=== PATIENT | male | born 1950 | race Caucasian/White ===

== ENCOUNTER 2024-02-25 08:13 | Oncology outpatient (recurring) (ONCR) | payer MEDICARE, SELFPAY ==
[2024-02-25 09:02] LABS: Basophils # 0.1 10^3/uL (0.0-0.1); Basophils % 1.3 %; Eosinophils # 0.1 10^3/uL (0.0-0.8); Hematocrit 38.5 % (37-53); Lymphocytes # 1.6 10^3/uL (0.8-4.8); Lymphocytes % 27.1 %; Mean Corpuscular HGB Conc 29.9 g/dL (30-55); Mean Corpuscular Hemoglobin 24.1 pg (27-33); Mean Corpuscular Volume 80.5 fl (82-101); Mean Platelet Volume 9.7 fL (7.4-10.4); Monocytes # 0.5 10^3/uL (0.2-0.9); Monocytes % 8.4 %; Neutrophils # 3.62 10^3/uL (1.8-7.7); Neutrophils % 60.9 %; Nucleated Red Blood Cells % 0 %; Platelet Count 307 10^3/cmm (157-399); Red Blood Count 4.78 10^6/uL (3.85-5.65); Red Cell Distribution Width 18.2 % (12.1-15.1); White Blood Count 5.95 10^3/uL (3.29-11.43)
[2024-02-25 09:25] LABS: Alanine Aminotransferase 9 U/L (0-41); Albumin Level 4.3 g/dL (3.5-5.2); Alkaline Phosphatase 124 U/L (40-130); Anion Gap 13.5 (5-19); Aspartate Amino Transferase 22 U/L (0-40); Blood Urea Nitrogen 15 mg/dL (8-23); Calcium 10.1 mg/dL (8.5-10.5); Carbon Dioxide 26 mmol/L (22-29); Chloride 108 mmol/L (98-107); Cholesterol 200 mg/dL (0-200); Globulin 2.5 g/dL (1.3-4.6); Glucose 101 mg/dL (65-115); HDL Cholesterol 73 mg/dL (60-100); LDL Cholesterol Direct 125 mg/dL (0-100); Osmolality Calculated 297 mOsm/kg (285-295); Potassium 4.5 mmol/L (3.5-5.1); Prostate Specific Antigen Scr 1.59 ng/mL (0-4); Sodium 143 mmol/L (136-145); Total Bilirubin 0.5 mg/dL (0.15-1.2); Total Protein 6.8 g/dL (6.6-8.7)
[2024-02-29 15:10] LABS: Vit D 1,25 (Oh)2, Total 49 pg/mL (18-72); Vit D2 1,25 (Oh)2 <8 pg/mL; Vit D3 1,25 (Oh)2 49 pg/mL
--- NOTE | 2024-03-04 10:30 | CT_ITS ---
WS: [id number] CT LUMBAR SPINE TECHNIQUE: Noncontrast CT of the lumbar spine with coronal and sagittal reformatted images. CLINICAL INFORMATION: radicular pain COMPARISON: None. DLP: 583.[address] scans at [facility] [place] use at least one of these dose optimization techniques: automated e xposure control; mA and/or kV adjustment per patient size (includes targeted exams where dose is matc hed to clinical indication); or iterative reconstruction. FINDINGS: 4 nonrib-bearing lumbar vertebral bodies. First sacral segment is considered L5 for the purposes of t his dictation. Recommend plain film correlation prior to surgical management. Prior interbody fusion L3-4. Partial ankylosis SI joints. Lung bases are well aerated. Adrenal glands are normal. T12-L1: Normal L1-L2: No significant disc bulging. Moderate facet arthropathy. Spinal canal and foramen are patent. L2-L3: Disc osteophyte complex with tiny central protrusion. Mild central canal stenosis. Slight narr owing subarticular recess bilaterally. Mild LEFT greater than RIGHT foraminal narrowing. Moderate fac et arthropathy. L3-L4: Prior interbody bony fusion. RIGHT hemilaminectomy. Mild central canal stenosis. Mild to moder ate RIGHT and mild LEFT foraminal narrowing. Moderate facet arthropathy. L4-L5: Mild disc bulge with osteophytic ridging. Slight effacement of the ventral thecal sac. Slight contact of the LEFT S1 nerve root. Mild bilateral foraminal narrowing. Moderate to advanced facet art hropathy. L5-S1: Normal. CT/CT lumbar spine wo con* [id number] IMPRESSION: 1. 4 nonrib-bearing lumbar vertebral bodies considered L1-L4 for the purposes of this dictation. First sacral segment is considered L5. 2. Mild central canal stenosis L2-L3 and L3-L4. Prior interbody fusion L3-4 wi th RIGHT hemilaminectomy. 3. Tiny central protrusion L4-5 with slight contact of the traversing LEFT gre ater than RIGHT S1 nerve roots. 4. Moderate facet arthropathy L2-L3 and L3-L4. Advanced facet arthropathy L4-5 . 5. Mild to moderate RIGHT L3-4 foraminal narrowing. 6. Otherwise mild foraminal narrowing described above.
--- NOTE | 2024-03-04 11:00 | CT_ITS ---
WS: [id number] CT ABDOMEN PELVIS TECHNIQUE: Noncontrast CT of the abdomen and pelvis with coronal and sagittal reformatted images. CLINICAL INFORMATION: radicular pain, ischial pain COMPARISON: None. DLP: 583.[address] scans at [facility] use at least one of these dose optimization techniques: automated e xposure control; mA and/or kV adjustment per patient size (includes targeted exams where dose is matc hed to clinical indication); or iterative reconstruction. FINDINGS: Lung bases are well aerated. Normal noncontrast liver. Cholelithiasis. No gallbladder wall thickening or pericholecystic fluid. Moderate to large esophageal hiatal hernia. Soft tissue thickening of the GE junction. This could be further evaluated with endoscopy. Normal noncontrast spleen. Adrenal glands are normal. No hydronephrosis. No obstructing renal or uret eral calculi. Enlarged prostate measuring 4.7 cm. Diffuse bladder wall thickening likely due to bladd er outlet obstruction. Advanced sigmoid diverticulosis with innumerable diverticuli. Suggestion of mi ld stricturing in the mid to distal sigmoid colon. This can be followed up with colonoscopy. Noncontrast pancreas appears normal. Normal caliber abdominal aorta. Mild aortic calcification. No ab dominal or pelvic lymphadenopathy. Interbody bony fusion L4-5. Hypertrophic changes lower thoracic an d lumbar spine. CT/CT abdomen pelvis wo con [id number] IMPRESSION: 1. Moderate to large esophageal hiatal hernia with soft tissue thickening at t he GE junction. This can be further evaluated with endoscopy. 2. Cholelithiasis. 3. Innumerable sigmoid diverticuli with suggestion of luminal narrowing. This could be further evaluated with barium enema or colonoscopy. 4. Enlarged prostate with bladder outlet obstruction. Recommend correlation PS A. 5. No other acute findings.
== END 2024-03-21 23:59 | disposition home or self-care (01) ==
LOC: RAD 03-04 10:22 → ONCMED 03-04 10:23
PROVIDERS: PCP Radiology Radiation Oncology; Visit Provider Radiology Radiation Oncology
DX: M54.30 Sciatica, unspecified side (principal); K44.9 Diaphragmatic hernia without obstruction or gangrene; K80.20 Calculus of gallbladder without cholecystitis without obstruction; K57.30 Diverticulosis of large intestine without perforation or abscess without bleeding; N40.0 Benign prostatic hyperplasia without lower urinary tract symptoms; M51.26 Other intervertebral disc displacement, lumbar region; M48.061 Spinal stenosis, lumbar region without neurogenic claudication; M47.816 Spondylosis without myelopathy or radiculopathy, lumbar region
CPT/HCPCS: 36415; 72131; 74176; 80053; 82465; 82652; 83704; 83718; 83721; 85025; G0103